=== PATIENT | female | born 1985 | race Caucasian/White ===

== ENCOUNTER 2017-02-24 14:55 | Inpatient (IN) | payer OTHER ==
[2017-02-24] MEDS ORDERED: RINGERS SOLUTION,LACTATED 1,000 ML IV PRN (15:02)
[2017-02-24] MEDS ORDERED: OXYTOCIN/NORMAL SALINE 20 UNIT/1,000 ML RTUINJ IV PRN ×2 (15:02→19:56)
[2017-02-24] MEDS ORDERED: RINGERS SOLUTION,LACTATED 300 ML IV ONE (15:02)
[2017-02-24 15:25] LABS: APPEARANCE,URINE SLIGHTLY-CLOUDY; BILIRUBIN,URINE NEGATIVE (NEGATIVE); COLOR,URINE YELLOW; GLUCOSE, URINE NEGATIVE (NEGATIVE); KETONES,URINE NEGATIVE (NEGATIVE); LEUKOCYTE ESTERASE,URINE LARGE (NEGATIVE); NITRITE,URINE NEGATIVE (NEGATIVE); PROTEIN,URINE NEGATIVE (NEGATIVE); URINE SPECIFIC GRAVITY 1.009; UROBILINOGEN,URINE NEGATIVE mg/dL (<2.0)
[2017-02-24 15:52] LABS: URINE AMPHETAMINES SCREEN NEGATIVE; URINE BARBITURATES SCREEN NEGATIVE; URINE BENZODIAZEPINES SCREEN NEGATIVE; URINE COCAINE SCREEN NEGATIVE; URINE MARIJUANA (THC) SCREEN NEGATIVE; URINE METHADONE SCREEN NEGATIVE; URINE PHENCYCLIDINE SCREEN NEGATIVE
[2017-02-24 16:15] LABS: ABSOLUTE MONOCYTES (AUTO) 0.6 10^3/uL (0.1-1.4); ABSOLUTE NEUT (AUTO) 6.7 10^3/uL (1.7-8.2); BASOPHILS % (AUTO) 0.3 % (0-2); EOSINOPHILS % (AUTO) 0.4 % (0-6); HEMATOCRIT 38.7 % (36.0-47.0); HEMOGLOBIN 12.8 g/dL (12.0-15.5); LYMPHOCYTES % (AUTO) 21.7 % (13-45); MEAN CORPUSCULAR HEMOGLOBIN 31.6 pg (27.0-33.4); MEAN CORPUSCULAR HGB CONC 33.1 g/dL (32.0-36.0); MEAN CORPUSCULAR VOLUME 96 fl (80-97); MONOCYTES % (AUTO) 6.9 % (3-13); PLATELET COUNT 151 10^3/uL (150-450); RED BLOOD COUNT 4.05 10^6/uL (3.72-5.28); RED CELL DISTRIBUTION WIDTH 13.8 % (11.5-14.0); SEGMENTED NEUTROPHILS % (AUTO) 70.7 % (42-78); TOTAL CELLS COUNTED % (AUTO) 100 %; WHITE BLOOD COUNT 9.4 10^3/uL (4.0-10.5)
[2017-02-24] MEDS ORDERED: OXYTOCIN/NORMAL SALINE 0 UNIT/0 ML RTUINJ ONE (16:26)
[2017-02-24] MEDS ORDERED: OXYTOCIN/NORMAL SALINE 20 UNIT/1,000 ML RTUINJ ONE (17:16)
[2017-02-24] MEDS ORDERED: MISOPROSTOL 0.2 MG TABLET ONE (17:16)
[2017-02-24] MEDS ORDERED: LIDOCAINE 1% INJ-PF (10 MG/ML) 30 ML SDV ONE (17:16)
[2017-02-24] MEDS ORDERED: EPHEDRINE SULFATE INJ 50 MG/1 ML AMPULE ONE (17:56)
[2017-02-24] MEDS ORDERED: FENTANYL/BUPIVACAINE/NS/PF 200 MCG/100 ML RTUINJ EPI ONE (17:56)
[2017-02-24] MEDS ORDERED: BUPIVACAINE HCL 0.25 % INJ/PF (2.5 MG/1 ML) 30 ML VIAL ONE (17:56)
[2017-02-24] MEDS ORDERED: ACETAMINOPHEN 650 MG SUPP.RECT PR PRN (19:56)
[2017-02-24] MEDS ORDERED: PSEUDOEPHEDRINE HCL 30 MG TABLET PO PRN (19:56)
[2017-02-24] MEDS ORDERED: BENZOCAINE/MENTHOL AEROSOL SPRAY 56 ML TOP PRN (19:56)
[2017-02-24] MEDS ORDERED: DIPH/PERTUSS(ACELL)/TETANUS VAC/PF 0.5 ML SYR (>=10YO) IM PRN (19:56)
[2017-02-24] MEDS ORDERED: ZOLPIDEM TARTRATE 5 MG TABLET PO PRN (19:56)
[2017-02-24] MEDS ORDERED: PROMETHAZINE HCL 25 MG TABLET PO PRN (19:56)
[2017-02-24] MEDS ORDERED: DIBUCAINE 1% OINTMENT 28 GM TP PRN (19:56)
[2017-02-24] MEDS ORDERED: MEASLES,MUMPS&RUBELLA VACC/PF 0.5 ML VIAL SUBCUT PRN (19:56)
[2017-02-24] MEDS ORDERED: GLYCERIN/WITCH HAZEL LEAF 1 EACH MED..PAD TP PRN (19:56)
[2017-02-24] MEDS ORDERED: DIPHENHYDRAMINE HCL 25 MG CAPSULE PO PRN (19:56)
[2017-02-24] MEDS ORDERED: NA PHOS,M-B/NA PHOS,DI-BA (ADULT) 133 ML ENEMA PR PRN (19:56)
[2017-02-24] MEDS ORDERED: MAGNESIUM HYDROXIDE SUSP 30 ML UDCUP PO PRN (19:56)
[2017-02-24] MEDS ORDERED: ACETAMINOPHEN WITH CODEINE #3 TABLET PO PRN ×2 (19:56)
[2017-02-24] MEDS ORDERED: PROMETHAZINE HCL INJ 25 MG/1 ML VIAL IV PRN (19:56)
[2017-02-24] MEDS ORDERED: PROMETHAZINE HCL 25 MG SUPP.RECT PR PRN (19:56)
--- NOTE | 2017-02-24 21:29 | Delivery Summary ---
Del Sum A-C Datetime Report Generated by CPN: 02/24/2017 21:28 DELIVERY PERSONNEL DELIVERY PERSONNEL: [id number] Delivery Doctor:: Martha Alvarado MD Anesthesiologist:: Kwadwo Mckeon MD Labor and Delivery Nurse:: Shira Ch RNreinsurance claim analyst Nurse:: Reyna Cazares RN Ux Lead/SPEECH/LANGUAGE THERAPIST: Abiodun Parra, SPEECH/LANGUAGE THERAPIST MATERNAL INFORMATION Delivery Anesthesia: Epidural Medications After Delivery: Pitocin Drip 20 Units/1000ml NSS Maternal Complications: Precipitous Labor (<3hrs) Provider Comments: VMI delivered in TANVI presentation. Tight nuchal delivered through. Shoulders and body delivered without difficulty. Cord doubly clamped and cut and to maternal abd. Placenta delivered intact spontaneously. FF at U. 1st degree perineal laceration repaired in the usual fashion. Good hemostasis. Mother and baby stable upon provider leaving the room. LABOR SUMMARY EDC: 02/22/2017 00:00 No. Babies in Womb: 1 Attempted: No Labor Anesthesia: Epidural LABOR INFORMATION Reason for Induction: Maternal Diabetes Onset of Labor: 02/24/2017 18:58 Complete Dilatation: 02/24/2017 19:31 Oxytocin: Induction Group B Beta Strep: NEGATIVE Antibiotics # of Doses: 0 Steroids Given: None Reason Steroids Not Administered: Not Applicable MEMBRANES Membranes Rupture Method: Artificial Rupture of Membranes: 02/24/2017 18:59 Length of Rupture (hr): 0.77 Amniotic Fluid Color: Clear Amniotic Fluid Amount: Moderate Amniotic Fluid Odor: Normal STAGES OF LABOR Stage 1 hr: 0 Stage 1 min: 33 Stage 2 hr: 0 Stage 2 min: 14 Stage 3 hr: 0 Stage 3 min: 3 Total Time in Labor hr: 0 Total Time in Labor min: 50 VAGINAL DELIVERY Episiotomy: None Laceration #1: Vaginal Laceration Extension #1: First Degree Laceration Repair: Yes Laceration Repair Note: 1st degree perineal laceration repaired in usual fashion. Good hemostasis. Sponge Count Correct: Yes Sharps Count Correct: Yes CSECTION DELIVERY Primary Indication: N/A Secondary Indication: N/A CSection Incidence: N/A Labor: N/A Elective: N/A CSection Incision: N/A BABY A INFORMATION Infant Delivery Date/Time: 02/24/2017 19:45 Method of Delivery: Vaginal Born in Route : No : N/A Forceps: N/A Vacuum Extraction: N/A Shoulder Dystocia : No PRESENTATION/POSITION BABY A Presentation: Cephalic Cephalic Presentation: Vertex Vertex Position: Right Occipital Anterior Breech Presentation: N/A PLACENTA INFORMATION BABY A Placenta Delivery Time : 02/24/2017 19:48 Placenta Method of Delivery: Spontaneous Placenta Status: Delivered SCORES BABY A Heart Rate 1 min: >100 bpm Resp Effort 1 min: Slow, Irregular Reflex Irritability 1 min: Cough or Sneeze or Pulls Away Muscle Tone 1 min: Some Flexion of Extremities Color 1 min: Body [place], Extremities Blue Resuscitation Effort 1 min: Tactile Stimulation SCORE 1 MIN: 7 Heart Rate 5 min: >100 bpm Resp Effort 5 min: Good Cry Reflex Irritability 5 min: Cough or Sneeze or Pulls Away Muscle Tone 5 min: Active Motion Color 5 min: Body [place], Extremities Blue Resuscitation Effort 5 min: Tactile Stimulation SCORE 5 MIN: 9 INFORMATION BABY A Gestational Age at Delivery: 40.2 Gestational Status: Full Term- 39- 40.6 Weeks Infant Outcome : Liveborn Condition : Stable Sex: Male IDENTIFICATION BABY A Verification Date/Time: 02/24/2017 19:54 ID Band Number: [id number] Mother's Name Verified: Yes RN Verifying Infant: S. Lattibtrinityir, RN _ C. Rebeca, RN WEIGHT/LENGTH BABY A Birthweight (gm): 3710 Infant Weight (lb): 8 Weight (oz): 3 Length (in): 20.00 Length (cm): 50.80 CORD INFORMATION BABY A No. Cord Vessels: 3 Nuchal Cord : Around Neck x1, Tight Cord Blood Taken: Yes-For Storage (Mom's Blood type +) Suction: Mouth; Nose ASSESSMENT BABY A Infant Complications: Meconium Complications- Other: terminal meconium Physical Findings at Delivery: Molding of the Head Infant Respirations: Appears Normal Supervisor Compressed Yeast/ALS Called : No Care By: SRandy Cazares, RN Transferred To: Remains with Mother BABY B INFORMATION : N/A SIGNATURES Signature: with User ID: [email or web address]
--- NOTE | 2017-02-24 22:26 | Warning Signs in Babies ---
VOD Warning Signs Datetime Report Generated by [facility]: 02/24/2017 22:26 VOD#608 -Warning Signs in Babies: Needs to be viewed. (02/24/2017 13:31:Shira Ch RN)
--- NOTE | 2017-02-24 23:00 | Admission Physical ---
Datetime Report Generated by CPN: 02/24/2017 23:00 CURRENT ADMISSION Indication for Induction: Postterm Indication for Induction: Term, Intrauterine Admit Plan: Admit to Unit; Initiate Labor Protocol; Initiate Labor Induction Protocol ALLERGIES Medication Allergies: Yes Medication Allergies: Penicillins (03/21/2013); Sulfa (Sulfonamide Antibiotics) (03/21/2013); amoxicillin (03/21/2013) Latex: No Latex Allergies OBSTETRICAL HISTORY EDC: 02/22/2017 00:00 : 3 Para: 1 Term: 1 IAB: 1 Gestational Diabetes: Yes Rh Sensitization: No Incompetent Cervix: No HILDA: No Infertility: No ART Treatment: No Uterine Anomaly: No IUGR: No Hx Previous C/S: No Macrosomia: No Hx Loss/Stillborn: No PIH: No Hx : No Placenta Previa/Abruption: No Depression/PP Depression: No PTL/PROM: No Post Hemorrhage: No Current Procedures: Ultrasound Obstetrical History Comments: G1 IAB 2002 G2 2014 40.1 7 lb 15 oz G3 current 2017 SEE RECORDS Alcohol: No Marijuana : No Cocaine: No Other Illicit Drugs: No Cigarettes: Never Smoker. 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 Heart Disease: No Hosp/Surgery: No Autoimmune Disorder: No Anesthetic Complications: No Kidney Disease: No Abnormal Pap Smear: Yes Neuro/Epilepsy: No Psychiatric Disorders: No Other Medical Diseases: No Hepatitis/Liver Disease: No Significant Family History: No Varicosities/Phlebitis: No Trauma/Violence : No Thyroid Dysfunction: No Medical History Comments: COLPO 2002, LEEP 2003 INFECTIOUS HISTORY Gonorrhea: No Genital Herpes: No Chlamydia: No Tuberculosis: No Syphilis: No Hepatitis: No HIV/AIDS Exposure: No Rash or Viral Illness: No HPV: Yes Infectious History Comments: HPV 2004 PHYSICAL EXAM General: Normal HEENT: Normal Neurologic: Normal Thyroid: Normal Heart: Normal Lungs: Normal Breast: Normal Back: Normal Abdomen: Normal Genitourinary Exam: Normal Extremities: Normal DTRs: Normal Pelvic Type: Adequate Vital Signs: Reviewed VAGINAL EXAM Dilatation: 4 Effacement: 50 Station: -2 FETUS A Monitoring: External US FHR- Baseline: 120 Variability: Moderate 6-25bpm Accelerations: 15X15 Decelerations: None FHR Category: Category I Presentation: Vertex Admit Comment: 31 yo admitted for induction of labor EDC 02/22/17 EGA 40.2 Gestational diabetes well managed VSS abdomen soft and nontender EFW 8lbs 4 oz. irregular uterine contractions start pitocin per induction protocol plan of care reviewed with pt and spouse anticipate PLANS FOR LABOR AND DELIVERY Labor and Delivery: None Pain Management: Epidural Feeding Preference: Formula Benefit of Breast Feed Discussed: Yes Circumcision: Yes INFORMED CONSENT Assignment: Martha Alvarado MD Signature: with User ID: [email or web address] : with User ID: [email or web address]
[2017-02-25] MEDS: FAMOTIDINE 20 MG TABLET PO SCH ×3 (00:17→21:27)
[2017-02-25] MEDS: IBUPROFEN 800 MG TABLET PO SCH ×4 (00:18→21:27)
[2017-02-25 08:00] LABS: HEMATOCRIT 35.9 % (36.0-47.0); HEMOGLOBIN 12.1 g/dL (12.0-15.5); MEAN CORPUSCULAR HEMOGLOBIN 31.6 pg (27.0-33.4); MEAN CORPUSCULAR HGB CONC 33.6 g/dL (32.0-36.0); MEAN CORPUSCULAR VOLUME 94 fl (80-97); PLATELET COUNT 129 10^3/uL (150-450); RED BLOOD COUNT 3.83 10^6/uL (3.72-5.28); RED CELL DISTRIBUTION WIDTH 13.9 % (11.5-14.0); WHITE BLOOD COUNT 15.7 10^3/uL (4.0-10.5)
[2017-02-25] MEDS: FERROUS SULFATE 325 MG TABLET PO SCH ×2 (09:30→18:05)
[2017-02-25] MEDS: DOCUSATE SODIUM 100 MG CAPSULE PO SCH ×2 (09:30→18:05)
[2017-02-25] MEDS: SENNOSIDES/DOCUSATE 8.6-50 MG 1 EACH TABLET PO SCH (09:30)
[2017-02-25] MEDS: PRENATAL VITAMIN W DHA CAPSULE PO SCH (09:31)
--- NOTE | 2017-02-25 13:00 | PDOC PROGRESS REPORT ---
Subjective-OB Subjective: Post Delivery Day: 31 year old. Denies any needs at this time. Pt doing well, no concerns. Reports light bleeding, regular diet and voiding well. Physical Exam (OB) Vital Signs: Temp Pulse Resp BP Pulse Ox 98.0 F 91 16 118/65 97 02/25/17 08:28 02/25/17 08:28 02/25/17 08:28 02/25/17 08:28 02/25/17 08:28 Intake & Output 02/24/17 02/25/17 02/26/17 06:59 06:59 06:59 Weight 103.85 kg - PIH/Pre-Eclampsia Headache: Absent Epigastric Pain: No Visual Changes: No - Lochia Lochia Amount: Small 10-25 ml Lochia Color: Rubra/Red - Abdomen Description: Tender, Soft Hernia Present: No Fundal Description: Firm Fundal Height: u/u - u/2 Objective-Diagnostic Laboratory: 02/25/17 07:28 02/24/17 02/24/17 02/24/17 15:05 15:35 15:35 WBC 9.4 RBC 4.05 Hgb 12.8 Hct 38.7 MCV 96 MCH 31.6 MCHC 33.1 RDW 13.8 Plt Count 151 Seg Neutrophils % 70.7 Lymphocytes % 21.7 Monocytes % 6.9 Eosinophils % 0.4 Basophils % 0.3 Absolute Neutrophils 6.7 Absolute Lymphocytes 2.0 Absolute Monocytes 0.6 Absolute Eosinophils 0.0 Absolute Basophils 0.0 Urine Color YELLOW Urine Appearance SLIGHTLY-CLOUDY Urine pH 7.0 Ur Specific [place] 1.009 Urine Protein NEGATIVE Urine Glucose (UA) NEGATIVE Urine Ketones NEGATIVE Urine Blood NEGATIVE Urine Nitrite NEGATIVE Ur Leukocyte Esterase LARGE H Blood Type A POSITIVE Antibody Screen NEGATIVE 02/25/17 07:28 WBC 15.7 H RBC 3.83 Hgb 12.1 Hct 35.9 L MCV 94 MCH 31.6 MCHC 33.6 RDW 13.9 Plt Count 129 L Seg Neutrophils % Lymphocytes % Monocytes % Eosinophils % Basophils % Absolute Neutrophils Absolute Lymphocytes Absolute Monocytes Absolute Eosinophils Absolute Basophils Urine Color Urine Appearance Urine pH Ur Specific [place] Urine Protein Urine Glucose (UA) Urine Ketones Urine Blood Urine Nitrite Ur Leukocyte Esterase Blood Type Antibody Screen Assessment and Plan(PN) - Assessment and Plan (1) Gestational diabetes Qualifiers: Gestational diabetes mellitus control: diet-controlled Trimester: first trimester Qualified Code(s): O24.410 - Gestational diabetes mellitus in , diet controlled Is this a current diagnosis for this admission?: Yes (2) Labor, precipitous, delivered Is this a current diagnosis for this admission?: Yes (3) Vaginal delivery Is this a current diagnosis for this admission?: Yes - Time Spent with Patient Time with patient: Less than 15 minutes Medications reviewed and adjusted accordingly: Yes - Disposition Anticipated Discharge: Home Within: within 48 hours
[2017-02-26] MEDS: IBUPROFEN 800 MG TABLET PO SCH ×2 (06:01→14:30)
[2017-02-26 09:24] VITALS: BP 129/76
[2017-02-26] MEDS: PRENATAL VITAMIN W DHA CAPSULE PO SCH (11:17)
[2017-02-26] MEDS: FERROUS SULFATE 325 MG TABLET PO SCH (11:18)
[2017-02-26] MEDS: FAMOTIDINE 20 MG TABLET PO SCH (11:18)
[2017-02-26] MEDS: DOCUSATE SODIUM 100 MG CAPSULE PO SCH (11:18)
[2017-02-26] MEDS: SENNOSIDES/DOCUSATE 8.6-50 MG 1 EACH TABLET PO SCH (11:18)
--- NOTE | 2017-02-26 13:07 | PDOC DISCHARGE SUMMARY ---
Final Diagnosis Discharge Date: 02/26/17 - Final Diagnosis (1) Gestational diabetes Is this a current diagnosis for this admission?: Yes (2) Labor, precipitous, delivered Is this a current diagnosis for this admission?: Yes (3) Vaginal delivery Is this a current diagnosis for this admission?: Yes Discharge Data - Discharge Medication Home Medications: Vits96/Iron Fum/Folic [ Tablet] 1 tab PO DAILY 03/20/13 Reason(s) for Admission: Induction of Labor Procedures: NST, Management of Obstetric Complications Intrapartum Procedure(s): Spontaneous Vaginal Delivery Complication(s): Laceration-Perineal Laceration-Degree: 1st - Diagnosis Test Laboratory: Temp Pulse Resp BP Pulse Ox 98.3 F 73 16 129/76 H 99 02/26/17 08:00 02/26/17 08:00 02/26/17 08:00 02/26/17 08:00 02/26/17 08:00 02/24/17 02/24/17 02/25/17 15:05 15:35 07:28 RBC 4.05 3.83 Hgb 12.8 12.1 Hct 38.7 35.9 L Urine Opiates Screen NEGATIVE - Discharge information/Instructions Discharge Activity: Balance Activity w/Rest, Pelvic Rest Discharge Diet: Regular Disposition: HOME, SELF-CARE Follow up with: [facility] in: 4, Weeks
== END 2017-02-26 14:20 | disposition home or self-care (01) | DRG 775 ==
LOC: LR 14:55 → 2S 22:58
PROVIDERS: ADMIT Student in an Organized Health Care Education/Training Program; ATTEND Student in an Organized Health Care Education/Training Program
PROC: 10E0XZZ Delivery of Products of Conception, External Approach (ICD-10-PCS; principal; 2017-02-24)
PROC: 0HQ9XZZ Repair Perineum Skin, External Approach (ICD-10-PCS; 2017-02-24)
DX: O48.0 Post-term pregnancy (principal); O24.420 Gestational diabetes mellitus in childbirth, diet controlled; O62.3 Precipitate labor; O69.1XX0 Labor and delivery complicated by cord around neck, with compression, not applicable or unspecified; O70.0 First degree perineal laceration during delivery; Z3A.40 40 weeks gestation of pregnancy; Z37.0 Single live birth
CPT/HCPCS: 36415; 80307; 81005; 85025; 85027; 86592; 86850; 86900; 86901; J2590; J3490